=== PATIENT | male | born 1960 | race Caucasian/White ===

== ENCOUNTER 2022-11-09 08:49 | Outpatient (CLI) | payer MEDICARE | END 2022-11-09 08:50 | disposition home or self-care (01) | LOC: CSHULT 08:49 | PROVIDERS: ATTEND Nurse Practitioner Family | DX: R42 Dizziness and giddiness (principal); I10 Essential (primary) hypertension; E78.2 Mixed hyperlipidemia | CPT/HCPCS: 93880 ==

== ENCOUNTER 2024-06-30 09:35 | Outpatient (CLI) | payer MEDICARE | END 2024-06-30 09:36 | disposition home or self-care (01) | LOC: CSHCT 09:35 | PROVIDERS: ATTEND Nurse Practitioner Family | DX: Z12.2 Encounter for screening for malignant neoplasm of respiratory organs (principal); Z87.891 Personal history of nicotine dependence | CPT/HCPCS: 71271 ==